=== PATIENT | female | born 1980 | race Two or more races ===

== ENCOUNTER 2017-01-02 21:57 | Emergency (ER) | payer MEDICAID ==
--- NOTE | ~2017-01-02 | ER ---
PAT[facility] AGE: 36 Y [address] ROOM: [place] [address] LOCATION: [facility] ADMIT DATE: 01/02/2017 ER/Outpatient Report DISCHARGE DATE: FAMILY PHYSICIAN: Zainab Betancur ATTENDING PHYSICIAN: Pineda Denise Time of Patient's Arrival: 2157 hours Time of Patient's Evaluation: 2220 hours CHIEF COMPLAINT: Headache, nausea, vomiting. HISTORY OF PRESENT ILLNESS: This is a 36-year-old, female, who is non-Italian speaking. Interpretation was done through the [employer] [facility]. The patient states she has had not been feeling well since Thursday. She has had nausea, vomiting, and headache. She states her vomiting started on Thursday and she does not believe she has been running any fevers at home. She did take some Tylenol at 2 o'clock this afternoon with no relief of her headache. She states she has never had a headache like this before. ALLERGIES: NO KNOWN ALLERGIES. MEDICATIONS: Please see medication list nurse's notes. PAST MEDICAL HISTORY: Negative. PAST SURGERIES: An EGD and a . SOCIAL HISTORY: Denies smoking, drug, or alcohol use. REVIEW OF SYSTEMS: All systems are reviewed and are negative exception of those discussed in the HPI. PHYSICAL EXAMINATION: VITAL SIGNS: Weight 87.3 kg taken, blood pressure is 190/96, pulse 87, respirations 18, temperature 98.9 degrees tympanically, and saturations 97% on room air. Morgan Coma Score is 15. GENERAL: Alert, calm, well-developed 36-year-old, in no acute distress, but PATIENT'S NAME: [facility]ENTRELL [facility] AGE: 36 Y [address] ROOM: [place] [address] LOCATION: ED ADMIT DATE: 01/02/2017 ER/Outpatient Report DISCHARGE DATE: FAMILY PHYSICIAN: Zainab Betancur ATTENDING PHYSICIAN: Pineda Denise she does appear not to feel well. HEENT: Head normocephalic. Eyes, pupils are equal and reactive to light. She does display moist mucous membranes. LUNGS: Clear to auscultation bilaterally. No wheezes or crackles. HEART: Regular rate and rhythm. ABDOMEN: Soft, it is nontender. She has good bowel sounds throughout. No masses are palpated. EXTREMITIES: No clubbing or cyanosis. She has full range of motion of all limbs. LABORATORY DATA: CBC: White count is 8.7, hemoglobin is 14.2, platelets 417. ANC is 5.6. CMS was unremarkable. Amylase 26, lipase 57. Free T4 is 1.1, TSH is 2.380. CT scan of her head was negative and reported by night Radiology. Urinalysis was negative for any infection. IMPRESSION: Headache, nausea, and vomiting. ASSESSMENT AND PLAN: We did start an IV here in the emergency room. Did give her some IV fluids along with Benadryl 50 mg IV, Compazine 10 mg IV. She states her pain has completely gone. We did monitor her for quite some time. We will dismiss her to home. She is to continue to push fluids, monitor symptoms. She may take Tylenol ibuprofen as needed and follow up with her family physician in 1-2 days if she is no better. The patient understands and agrees with care. CHETAN PEARCE PA-C FOR MD JUSTIN BERGER/jose manuel /[id number] d: 01/03/17 0037 t: 01/06/17 1805, OUTPATIENT REPORT
[2017-01-02 23:05] LABS: BASOPHIL % 0.3 %; EOSINOPHIL # 0.1 K/uL (0.0-0.5); EOSINOPHIL % 0.6 %; HEMATOCRIT 42.7 % (33.0-46.0); HEMOGLOBIN 14.2 g/dL (11.0-15.0); IMMATURE GRANULOCYTE % 0.3 %; LYMPHOCYTE # 2.4 K/uL (0.8-4.0); LYMPHOCYTE % 28.1 %; MCH 27.5 pg (27.0-34.0); MCHC 33.3 gm/dL (32.0-36.5); MCV 82.8 fl (83.0-98.0); MONOCYTE # 0.5 K/uL (0.0-1.0); MONOCYTE % 5.8 %; MPV 10.1 fl (9.4-12.4); NEUTROPHIL # (ANC) 5.6 K/uL (1.8-7.8); NEUTROPHIL % 64.9 %; NRBC % 0 /100WBC (0-0.00); PLATELET COUNT 417 K/uL (150-450); RBC 5.16 M/uL (3.50-5.50); RDW-CV 13.7 % (11.9-14.6); WBC 8.7 K/uL (4.0-11.0)
[2017-01-02 23:09] LABS: BILIRUBIN URINE NEGATIVE (NEGATIVE); BLOOD URINE NEGATIVE /UL (NEGATIVE); COLOR URINE YELLOW (YELLOW); GLUCOSE URINE NEGATIVE (NEGATIVE); KETONE URINE NEGATIVE (NEGATIVE); LEUKOCYTES URINE NEGATIVE /UL (NEGATIVE); NITRITE URINE NEGATIVE (NEGATIVE); PH URINE 6.5 (4.0-8.0); PROTEIN URINE 30 mg/dL (NEGATIVE); SPEC GRAVITY URINE 1.005 (1.003-1.035); TURBIDITY URINE CLEAR (CLEAR); UROBILINOGEN URINE NORMAL (NORMAL)
[2017-01-02 23:22] LABS: BACTERIA URINE MODERATE (NEGATIVE); EPITHELIAL URINE 20-50 #/HPF (NEGATIVE); RBC URINE NEGATIVE #/HPF (NEGATIVE); WBC URINE NEGATIVE #/HPF (NEGATIVE)
[2017-01-02 23:32] LABS: ALBUMIN 3.8 gm/dL (3.5-5.0); ALK PHOS 98 IU/L (33-138); ALT 50 IU/L (12-78); ANION GAP 13.6 (10.0-19.0); AST 28 IU/L (10-40); BLOOD UREA NITROGEN 4 mg/dL (6-24); CALCIUM 8.7 mg/dL (8.5-10.5); CHLORIDE 106 mMol/L (96-110); CO2 24 mMol/L (22-32); CREATININE 0.7 mg/dL (0.5-1.1); POTASSIUM 3.6 mMol/L (3.7-5.1); SODIUM 140 mMol/L (135-145); TOTAL BILIRUBIN 0.8 mg/dL (0.0-1.5); TOTAL PROTEIN 7.8 g/dL (6.0-8.4)
== END 2017-01-03 00:56 | disposition disaster alternative care site (69) ==
LOC: GMED 21:57
PROVIDERS: Physician Assistant Medical
DX: R51 Headache (principal); R11.2 Nausea with vomiting, unspecified; Z79.899 Other long term (current) drug therapy; Z98.890 Other specified postprocedural states
CPT/HCPCS: J0780; J1200; J7030